=== PATIENT | female | born 1990 | race Two or more races ===

== ENCOUNTER 2021-04-25 11:31 | Inpatient (IN) | payer OTHER ==
[~2021-04-25] VITALS: Ht 172.7 cm; Wt 85.3 kg
[2021-04-25] MEDS ORDERED: PRENATAL CAPLE1 EAC1 PO (12:04)
== END 2021-04-27 12:06 | disposition home or self-care (01) | DRG 798 ==
LOC: OB/GYN 11:31 → LDR 11:31 → OB/GYN 04-26 00:24
PROVIDERS: ADMIT Obstetrics & Gynecology; ATTEND Obstetrics & Gynecology
PROC: 10E0XZZ Delivery of Products of Conception, External Approach (ICD-10-PCS; principal; 2021-04-25)
PROC: 4A1HXFZ Monitoring of Products of Conception, Cardiac Rhythm, External Approach (ICD-10-PCS; 2021-04-25)
PROC: 0UB70ZZ Excision of Bilateral Fallopian Tubes, Open Approach (ICD-10-PCS; 2021-04-26)
DX: O80 Encounter for full-term uncomplicated delivery (principal); Z37.0 Single live birth; Z30.2 Encounter for sterilization; Z3A.39 39 weeks gestation of pregnancy; Z20.822 Contact with and (suspected) exposure to COVID-19